=== PATIENT | male | born 1965 | race Caucasian/White ===

== ENCOUNTER 2023-02-02 08:49 | Outpatient (OUT) | payer OTHER, SELFPAY ==
--- NOTE | 2023-02-02 09:06 | XR_ITS ---
The [address] [address] Patient Name: ANUSHA SALMERON MRN: [id number] date: 1965 Sex: M Assigned Patient Location: RAD Current Patient Location: [facility] Accession/Order Number: [id number] Exam Date: 02/02/2023 09:10 Report Date: 02/02/2023 09:29 At the request of: YAMILE AMIN Procedure: XR shoulder RT min 2V EXAM: XR shoulder RT min 2V HISTORY: Fall, Right Shoulder Pain COMPARISON: None TECHNIQUE: 3 views of the right shoulder were obtained. FINDINGS: No definite acute fracture or dislocation. Glenohumeral relationship appears grossly unremarkable. Moderate degenerative changes about the acromioclavicular joint. Well-circumscribed calcification along the superior aspect of the AC joint compatible with degenerative change. Soft tissues are grossly within normal limits. XR/XR shoulder RT min 2V IMPRESSION: Right shoulder study fails to demonstrate definite acute fracture or dislocation. Degenerative changes as described. Follow-up as needed. Electronically authenticated by: EDGARDO ESTRADA Date: 02/02/2023 09:29
== END 2023-02-02 08:50 | disposition home or self-care (01) ==
LOC: RAD 08:56
PROVIDERS: Visit Provider Nurse Practitioner Family
DX: M25.511 Pain in right shoulder (principal)
CPT/HCPCS: 73030

== ENCOUNTER 2023-02-22 08:29 | Outpatient (OUT) | payer OTHER, SELFPAY ==
--- NOTE | 2023-02-22 08:34 | MR_ITS ---
[address] [address] Patient Name: ANUSHA SALMERON MRN: [id number] date: 1965 Sex: M Assigned Patient Location: MRI Current Patient Location: MRI Accession/Order Number: [id number] Exam Date: 02/22/2023 08:43 Report Date: 02/22/2023 09:43 At the request of: YAMILE AMIN Procedure: MR shoulder RT wo con EXAM: MR shoulder RT wo con REASON FOR EXAM: Right shoulder pain. TECHNIQUE: Multiplanar, multisequence imaging of the right shoulder was performed without contrast COMPARISON: Plain radiograph 02/02/2023. FINDINGS: The acromioclavicular joint is congruent with joint space narrowing, capsular hypertrophy and subchondral edema/cystic changes. Well-corticated ossific bodies are noted along the superior margin of the AC joint. Inferior marginal osteophytes mildly narrow the supraspinatus outlet. Mild broad-based thickening and partial ossification the distal coracoacromial ligament is consistent with a subacromial spur, which also mildly narrows the supraspinatus outlet. Trace amount of fluid is present in the subacromial subdeltoid bursa. Superimposed on tendinosis, there is a high-grade partial-thickness bursal sided tear of the central cuff at the greater tuberosity. Difficult to entirely exclude a full-thickness component. No significant proximal retraction. The teres minor tendon is intact. The subscapularis tendon is thickened with intermediate signal consistent with tendinosis. No tear. The extra capsular biceps tendon is within the bicipital groove. Intracapsular biceps tendon is intact. The rotator cuff musculature demonstrates symmetric bulk and signal. The humerus is centered on the glenoid. Low to intermediate grade chondrosis the glenohumeral cartilage. No detached labral tear identified. No joint effusion. The bone marrow signal is without fracture. The quadrilateral space is patent. No axillary lymphadenopathy. MR/MR shoulder RT wo con IMPRESSION: 1. Rotator cuff tendinosis with high-grade partial-thickness bursal sided tear of the central cuff at the insertion. Difficult to entirely exclude a full-thickness component. 2. Intact biceps tendon. 3. 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 4. Mild glenohumeral osteoarthritis Electronically authenticated by: SUYAPA FERRERA Date: 02/22/2023 09:43
== END 2023-02-22 08:30 | disposition home or self-care (01) ==
LOC: MRI 08:29
PROVIDERS: Visit Provider Nurse Practitioner Family
DX: S43.401A Unspecified sprain of right shoulder joint, initial encounter (principal); M75.101 Unspecified rotator cuff tear or rupture of right shoulder, not specified as traumatic
CPT/HCPCS: 73221

== ENCOUNTER 2024-07-18 17:56 | Emergency (ER) | payer BC, SELFPAY ==
--- OUTSIDE RECORDS SUMMARY | 2020-02-29 07:59 | XMS_ITS | Continuity of Care Document ---
Author Organization [facility] Address [address] [facility] [address] [place] [address] Phone Care Team Providers Care Security Business Analyst Name Role Phone Fahad Bradley Unavailable Unavailable Allergies, Adverse Reactions, Alerts Substance Reaction Status Criticality No Known Allergies Active No Inform ation Medications Medication Instructions Dosage Effective Dates (start - stop) Status Comments Ultravate 0.05 % topical cream apply by topical route 2 times every day for 2 weeks a thin layer to the affected area(s) ; do not exceed 50 grams per wk Not Available - Active Aquaphor topical ointment AAA 4 times daily PRN. - Active Procedures Procedure Date OFFICE VISIT/EST LEVEL III OFFICE VISIT/EST LEVEL III OFFICE VISIT/EST LEVEL III OFFICE VISIT/EST LEVEL III OFFICE VISIT/EST LEVEL III CBC W/DIFF. METABOLIC PANEL: CHEM 19 LIPID PANEL OFFICE VISIT/NEW LEVEL II Advance Directives Directive Yes / No Effective Date File Name No Information Encounters Encounter Description Practice Location Reason(s) For Visit Diagnoses Date Provider Providers Copied on Encounter [facility], [address], [place], [place], [id number], [place] tel:[phone] [facility] No Information 1 Jeffrey Vásquez. [address] [place], [place], [id number], [place]. tel:[phone] OFFICE VISIT/EST LEVEL III [facility], [address] [facility] [address], [place], [place], [id number], [place] tel:[phone] [facility] Rash (chief complaint)col on cancer screening (chief complaint) Contact dermatitis, unspecified contact dermatitis type, unspecified triggerColon cancer screening 6 Jeffrey V[address] [place], [place], [id number], [place]. tel:[phone] OFFICE VISIT/EST LEVEL III [facility], [address] [facility] [address], [place], [place], [id number], [place] tel:[phone] [facility] Rash (chief complaint) Contact dermatitis, unspecified contact dermatitis type, unspecified trigger 6 Jeffrey V[address]quez[address] [place], [place], [id number], [place]. tel:[phone] OFFICE VISIT/EST LEVEL III [facility], [address], [id number], [place] tel:[phone] [facility] rash (chief complaint) Contact dermatitis, unspecified contact dermatitis type, unspecified trigger 6 Judi Roberts. [address] [place], [place], [id number], [place]. tel:[phone] OFFICE VISIT/EST LEVEL III [facility], [address], [id number], [place] tel:[phone] [facility] musculoskelet al pain (chief complaint) No Information 3 No Information OFFICE VISIT/EST LEVEL III [facility], [address] [facility] [address], [place], [place], [id number], [place] tel:[phone] [facility] hypertension (follow up) (chief complaint) No Information 3 Jeffrey V[address] [place], [place], [id number], [place]. tel:[phone] OFFICE VISIT/NEW LEVEL II [facility], [address] [facility] [address], [place], [place], [id number], [place] tel:[phone] [facility] establish care (chief complaint)cou gh (chief complaint) No Information 2 Jeffrey Vásquez. [address], [place], [place], [id number], [place]. tel:[phone] Family History Family Member Type Diagnosis Age At Onset Paternal grandfather Problem (finding) Cancer, brain Mother Problem (finding) Alive and well Father Problem (finding) Alive and well Maternal grandfather Problem (finding) coronary arteri osclerosis Problem (finding) Family history of malignant neoplasm of lung Payers Payer name Insurance type Covered libertarian ID Authoriza tion(s) No Information Social History Type Description Quantity Date Captured Comments Alcohol Use Details Unknown Caffeine Use Details Unknown Tobacco Use Status No Information Smoking Status No Information Sex Male Chief Complaint And Reason For Visit No Information Reason For Referral Reason For Referral No Information Plan Of Treatment Date Type Action Status Goal Colonoscopy. Due on 026 due Goal Influenza vaccine. Due on due Goal Zoster vaccine (1st). Due on due Goal Tdap. Due on due Goal BL OCCULT,FECES-PEROX ACT-MU LT.SPEC. Due on due Goal Zoster vaccine (2nd). Due on due Goal HIV Screen. Due on due Goal HCV. Due on due Goal FIT test. Due on due Goal DNA Cologuard. Due on due Goal FIT test. Due on due Goal COLONOSCOPY/DX. Due on due Goal PSA. Due on due Goal Fluzone Quad Syringe. Due on due Goal Tdap. Due on due Goal BL OCCULT,FECES-PEROX ACT-MU LT.SPEC. Due on due Goal Tdap. Due on due Goal COLONOSCOPY/DX. Due on due Goal FIT test. Due on due Goal PSA. Due on due Goal Fluzone Quad Syringe. Due on due Goal BL OCCULT,FECES-PEROX ACT-MU LT.SPEC. Due on due Goal Fluzone Quad Syringe. Due on due Goal PSA. Due on due Goal COLONOSCOPY/DX. Due on due Goal FIT test. Due on due Goal Tdap. Due on due Goal BL OCCULT,FECES-PEROX ACT-MU LT.SPEC. Due on due Referral Referred To: Esperanza Sibley MD [address] [place] [address]
[address] [place], [phone] Ordered: Referrals: Gastroenterology. Esperanza Sibley MD. Evaluate and treat ordered History Of Present Illness Encounter Date Complaint History Of Prese nt Illness colon cancer screening Pertinent negatives include abdominal pain, constipation, diarrhea, melena and rectal bleeding. Additional information: No family history of colon cancer, No family history of Crohn's/colitis and Pt states has had colonoscopy in past years ago. Has not had colon cancer screening since turning 50. Rash The patient pres ents for Rash. Additional information: Pt here for follow up for rash on left hand. Dry cracked skin left hand palm. Was improving when away from work x 1 week. Once went back to work dry cracked skin returned. Rash The patient pres ents for Rash. This episode began 1 month ago. Affected area(s) include left hand. The patient describes the affected area(s) as itchy and scaly. The symptoms are associated with contact with chemicals. The symptoms are not associated with contact with plants, new skin soaps/lotions and recent medicines. Associated symptoms include cracking, dry skin, pruritus and scaling. Additional information: Pt here for follow up. Pt states rash improved with ultravate but ran out after 10 days. Pt states 15 grams only lasted 10 days. 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 Pt avoiding chemical contact with hands at work. rash The patient pres ents for rash. This episode began 3 months ago. The symptom(s) are described as occurs daily. Affected area(s) include left hand. The patient describes the affected area(s) as dry and itchy. Associated symptoms include pharyngitis and pruritus. Additional information: L hand palm area above the thenar eminence, He reports exposure with valves that have chemicals in them, he is using gloves but not all valves are labeled. Functional Status Date Functional Assessmen t No Information Instructions Date Instruction Additional Infor jennifer GI referral for colonoscopy. Rel ated to Colon cancer screening If no better 1 month will get derm consult. Related to Contact dermatitis, unspecified contact dermatitis type, unspecified trigger will change to betam ethasone on next refill. Related to Contact dermatitis, unspecified contact dermatitis type, unspecified trigger continue halbetasol cream BID x 2 additional weeks. Related to Contact dermatitis, unspecified contact dermatitis type, unspecified trigger F/u 1 month. Related to Conta ct dermatitis, unspecified contact dermatitis type, unspecified trigger Keep hands dry. Glov es when washing dishes or hands wet. Related to Contact dermatitis, unspecified contact dermatitis type, unspecified trigger aquaphor or neutrage na hand cream AAA 4 times daily PRN. Related to Contact dermatitis, unspecified contact dermatitis type, unspecified trigger ultravate cream AAA BID x 2 week s. Related to Contact dermatitis, unspecified contact dermatitis type, unspecified trigger f/u if BP greater than 140/90 Re lated to Hypertension, Unspecified HTN resolved. Pt adv ised to monitor at home 1-2 times per month. Related to Hypertension, Unspecified Z-christo. Related to Bronc hitis Increase fluids, rest, good food . Related to Bronchitis Mucinex OTC BID PRN. Related to Bronchitis nurse visit to check fasting labs then f/u appt 1 month to recheck BP. Related to HTN (hypertension) Pt to check BP 1-2 t imes per week at home and record. Related to HTN (hypertension) Assessments Type Assessment Date No Information Patient Care Teams Name Effective Dates (start - stop) Status Members No Information
[2024-07-18] VITALS (23 sets, daily range): BP systolic 106–143; BP diastolic 67–97; PULSE 62–79; TEMP 37.1; O2SAT 93–98; BMI 29.5
--- OUTSIDE RECORDS SUMMARY | 2024-07-18 18:05 | XMS_ITS | Clinical Summary ---
Author Organization [facility]in [facility] Address [address] [place] [address] Care Team Providers Care President Ergonomic Consulting Name Role Phone Bruno Lyn MD Primary Care Provider [phone] Allergies No known active allergies Medications meloxicam (MOBIC) 15 MG tablet 15 mg 1 Active metFORMIN (GLUCOPHAGE) 500 MG tablet 500 mg 1 Active atorvastatin (LIPITOR) 20 MG tablet 20 mg 1 Active lisinopril (PRINIVIL;ZESTR IL) 5 MG tablet 5 mg 1 Active diclofenac sodium (VOLTAREN) 1 % GELIndications: Right thigh pain,Right hamstring injury, initial encounter Apply 4 g topically 4 times daily 350 g 1 1 Active terbinafine (LAMISIL) 250 MG tabletIndicatio ns:Onychomycosi s TAKE 1 TABLET BY MOUTH EVERY DAY 84 tablet 1 Active Active Problems Problem Noted Date Diagnosed Date Mass of left side of neck 12/13/2020 Type 2 diabetes mellitus wit hout complication, without long-term current use of insulin 12/13/2020 Right thigh pain 12/13/2020 Onychomycosis 12/13/2020 Right hamstring injury 12/13/2020 Mixed hyperlipidemia 10/03/2020 Corrosion of first degree of back of left hand 0 2016 Family History Medical History Relation Name Comments Cancer Maternal Uncle lung Cancer Paternal Grandfather brain Cancer Paternal Grandmother brain Relation Name Status Comments Father Alive Maternal Uncle Mother Alive Paternal Grandfather Paternal Grandmother Social History Tobacco Use Types Packs/Day Years Used Date Smoking Tobacco: Former Cigarettes 2 22 Smokeless Tobacco: Former Quit: 09/12/2006 Tobacco Cessation:Counseling Given: Yes Comments:Quit 2005 Alcohol Use Standard Drinks/Week Comments No 0 (1 standard drink = 0.6 oz pur e alcohol) Overall Financial Resource Strain (CARDIA) Answe r Date Recorded How hard is it for you to pa y for the very basics like food, housing, medical care, and heating? Not hard at all 12/13/2020 PHQ-2 Answer Date Recorded PHQ-9 Total Score 0 12/13/2020 Hunger Vital Sign Answer Date Recorded Within the past 12 months, y ou worried that your food would run out before you got the money to buy more. Never true 12/14/19 21 Within the past 12 months, t he food you bought just didn't last and you didn't have money to get more. Never true 12/13/2020 PRAPARE - Transportation Answer Date Re corded In the past 12 months, has l ack of transportation kept you from medical appointments or from getting medications? No 11/16 In the past 12 months, has l ack of transportation kept you from meetings, work, or from getting things needed for daily living? No 12/13/2020 Sex and Gender Information Value Date Recorded Sex Assigned at Not on file Legal Sex Male 7:18 PM EST Gender Identity Not on file Sexual Orientation Not on file Last Filed Vital Signs Vital Sign Reading Time Taken Comments Blood Pressure 117/76 12/13/2020 8:49 AM EDT Pulse 71 12/13/2020 8:49 AM EDT Temperature 37 C (98.6 F) 10/11/2015 10:35 AM EDT Respiratory Rate 16 2016 2:08 PM EST Oxygen Saturation 93% 10/11/2015 11:05 AM EDT Inhaled Oxygen Concentration - - Weight 86.6 kg (191 lb) 12/13/2020 8:49 AM EDT Height 172.7 cm (5' 8 ) 12/13/2020 8:49 AM EDT Body Mass Index 29.04 12/13/2020 8:49 AM EDT Plan of Treatment Not on file Care Teams President Ergonomic Consulting Relationship Specialty Start Date End Date Bruno Lyn MD [address] [place] [address] PCP - General Family Medicine 01/30/21
--- OUTSIDE RECORDS SUMMARY | 2024-07-18 18:05 | XMS_ITS | Encounter Summary ---
Author Organization [facility] Address [id number] [address] [place] [address] Care Team Providers Care Glass Installer Technician Name Role Phone Horacio Moore DO Primary Care Provider [phone] Encounter Details Date Type Department Care Team (Late st Contact Info) Description 12/01/2023 Telephone [facility] - Family Medicine [address] [place] [id number] Mk Packer CMA Social History Tobacco Use Types Packs/Day Years Used Date Smoking Tobacco: Former Cigarettes 2 30.6 0 1981 - 11/25/2011 Smokeless Tobacco: Never Alcohol Use Standard Drinks/Week Comments Yes 0 (1 standard drink = 0.6 oz pur e alcohol) SOCIAL C Utilities Answer Date Recorded In the past 12 months has [employer] electric, gas, oil, or water company threatened to shut off services in your home? No 11/25/2023 Social Connection and Isolation Panel [NHANES] A nswer Date Recorded In a typical week, how many times do you talk on the phone with family, friends, or neighbors? Once a week 11/25/19 How often do you get togethe r with friends or relatives? Once a week 11/25/2023 How often do you attend chur ch or temple services? Never 11/25/2023 Do you belong to any clubs o r organizations such as jew groups, unions, fraternal or athletic groups, or school groups? No 11/25/2023 How often do you attend meet ings of the clubs or organizations you belong to? Never 11/25/2023 Are you , , di vorced, , never , or living with a partner? Living with partner 11/25/2023 AUDIT-C Answer Date Recorded Q1: How often do you have a drink containing alc ohol? 2-4 times a month 11/25/2023 Q2: How many drinks containi ng alcohol do you have on a typical day when you are drinking? 1 or 2 11/25/2023 Q3: How often do you have si x or more drinks on one occasion? Never 11/25/2023 PHQ-2 Answer Date Recorded Total Score 0 03/26/2023 [facility] - Occupational Stress Questionnaire Answer Date Recorded Do you feel stress - tense, restless, nervous, or anxious, or unable to sleep at night because your mind is troubled all the time - these days? Only a little 11/25/2023 Exercise Vital Sign Answer Date Recorde d On average, how many days pe r week do you engage in moderate to strenuous exercise (like a brisk walk)? 2 days 11/25/2023 On average, how many minutes do you engage in exercise at this level? 30 min 11/25/2023 PRAPARE - Transportation Answer Date Re corded In the past 12 months, has l ack of transportation kept you from medical appointments or from getting medications? No 11/15 In the past 12 months, has l ack of transportation kept you from meetings, work, or from getting things needed for daily living? No 11/25/2023 Housing Instability Answer Date Recorde d Are you worried or concerned that in the next two months you may not have stable housing that you own, rent or stay in as a part of a household? No 11/25/2023 Childcare Answer Date Recorded Do problems getting child ca re make it difficult for you to work or study? No 11/25/2023 Employment Answer Date Recorded Do you need help finding a [facility] and/or a training program? No 11/25/2023 Hunger Screening Answer Date Recorded Within the past 12 months we worried whether our food would run out before we got money to buy more. Never True 03/26/2023 Within the past 12 months th e food we bought just didn't last and we didn't have money to get more. Never True 03/26/2023 Purpose - Life Answer Date Recorded I have a purpose and direction in my life. Stron gly Agree 11/25/2023 Sex and Gender Information Value Date Recorded Sex Assigned at Not on file Legal Sex Male 12:55 PM EST Gender Identity Not on file Sexual Orientation Not on file documented as of this encounter Miscellaneous Notes * Telephone Encounter - Mk Packer CMA - 12/01/2023 2:32 PM EDT ----- Message from Dr. Horacio Moore DO sent at 12/01/2023 11:12 AM EDT ----- Looks like he might have a 5 mm nodule in his right lung but has benign appearance. They recommend rechecking a CT scan in 1 year * Telephone Encounter - Chichi Mar CMA - 12/01/2023 2:32 PM EDT Pt called back read note stated he understood documented in this encounter Plan of Treatment Not on file documented as of this encounter Visit Diagnoses Not on filedocumented in this encounter Additional Health Concerns Assessment Noted Time PHQ-9 Depression Total Score: 0 03/26/19 10:09 AM EST documented as of this encounter Care Teams Glass Installer Technician Relationship Specialty Start Date End Date Horacio Moore DO [address] [facility] [place] [address] PCP - General Family Medicine 08/30/23 documented as of this encounter
--- NOTE | 2024-07-18 18:16 | XR_ITS ---
The [place] [id number] Patient Name: ANUSHA SALMERON MRN: [id number] date: 1965 Sex: M Assigned Patient Location: ER Current Patient Location: ER Accession/Order Number: [id number] Exam Date: 07/18/2024 18:34 Report Date: 07/18/2024 18:34 At the request of: ADDI MCCLELLAN Procedure: XR chest 1V Plain film chest Single view HISTORY: Chest pain COMPARISON: None FINDINGS: SUPPORT DEVICES: None POSTSURGICAL CHANGES: None HEART: Within normal limits PULMONARY REENA: Within normal limits MEDIASTINUM: Unremarkable LUNGS AND PLEURA: No acute lung process, pleural effusion or pneumothorax identified. BONY STRUCTURES: Intact ADDITIONAL FINDINGS None XR/XR chest 1V IMPRESSION: No acute process. Impression dictated by: Tavon Rodarte M.D. 07/18/2024 6:34 PM Dictation Location: [place] [address] Electronically authenticated by: [id number] Y Date: 07/18/2024 18:34
--- NOTE | 2024-07-18 18:16 | ECG_ITS ---
The [facility] Test Date: 2024-07-18 Pat Name: ANUSHA SALMERON Department: Room: - Gender: Male Senior Visual Designer: : 1965 Requested By: [id number] Order Number: [id number] Reading MD: AMADOR CORRAL M.D. Measurements Intervals [place] Rate: 62 P: 12 MO: 154 QRS: 76 QRSD: 96 T: 31 QT: 386 QTc: 391 Interpretive Statements [address] abnormality Abnormal ECG No previous ECG available for comparison Electronically Signed On 07-19-2024 19:09:12 EDT by AMADOR CORRAL M.D.
--- NOTE | 2024-07-18 18:16 | ED.CHESTPAI1 ---
HPI - Chest Pain General Chief Complaint: Chest Pain Stated Complaint: chest pain Time Seen by Provider: 07/18/24 18:05 Source: patient Mode of arrival: walk-in History of Present Illness HPI narrative: 59 year old male presents to the ED for discomfort to his left chest and left arm. Onset was earlier today at work while climbing a ladder. States he was reaching up with his left arm when the arm pain started. It then radiated to his left chest. Reports tenderness to the chest area with palpation. States he became diaphoretic and his face was red. Reports having a stressful day at work today. The pain lasted a few minutes. Denies pain now. Denies fever, chills, dizziness, SOB. Reports his vision was going in and out for about 30 minutes. Related Data Home Medications ?Medication ?Instructions ?Recorded ?Confirmed atorvastatin 20 mg tablet mg PO DAILY 07/18/24 lisinopril 5 mg tablet mg 07/18/24 meloxicam 15 mg tablet mg 07/18/24 Allergies Allergy/AdvReac Type Severity Reaction Status Date / Time No Known Drug Allergies Allergy Verified 07/18/24 18:04 Review of Systems ROS Constitutional Denies: fever or chills Ears, nose, mouth, and throat Denies: throat pain Cardiovascular Reports: chest pain; Denies: palpitations or edema Respiratory Denies: shortness of breath or cough Gastrointestinal Denies: abdominal pain, nausea or vomiting Musculoskeletal Denies: back pain or neck pain Integumentary/Breast Denies: rash Neurological Denies: headache, numbness in extremities, weakness in extremities, lack of coordination or dizziness Psychiatric Reports: anxiety PFSH PFSH Social History Little interest or pleasure in doing things: not at all Feeling down, depressed, or hopeless: not at all Exam Constitutional Vital Signs, click to edit/add: Last Vital Signs Temp 98.7 F 07/18/24 18:04 Pulse 79 07/18/24 20:30 Resp 18 07/18/24 20:30 BP 143/88 H 07/18/24 20:30 Pulse Ox 94 L 07/18/24 20:30 O2 Del Method Room Air 07/18/24 18:04 Common normals: no apparent distress and oriented x3 General appearance: cooperative HENMT Common normals: moist oral mucous membranes Eye Common normals: conjunctivae normal and no scleral icterus Neck & C-Spine Common normals: supple Chest Chest: symmetrical chest wall rise and tenderness (Left lower anterior at site of patient's discomfort) Neuro Common normals: oriented x3, CN's II-XII intact bilaterally and moves all extremities Sensorium/orientation: awake and alert Speech: speech normal Course Vital Signs Vital signs: Vital Signs Temperature 98.7 F 07/18/24 18:04 Pulse Rate 74 07/18/24 18:04 Respiratory Rate 16 07/18/24 18:04 Blood Pressure 137/85 07/18/24 18:04 Pulse Oximetry 96 07/18/24 18:04 Oxygen Delivery Method Room Air 07/18/24 18:04 Temperature 98.7 F 07/18/24 18:04 Pulse Rate 79 07/18/24 20:30 Respiratory Rate 18 07/18/24 20:30 Blood Pressure 143/88 H 07/18/24 20:30 Pulse Oximetry 94 L 07/18/24 20:30 Oxygen Delivery Method Room Air 07/18/24 18:04 MDM - Chest Pain MDM Narrative Medical decision making narrative: Chest x-ray was negative for acute findings. EKG was unremarkable. Laboratory studies were unremarkable, including two negative troponin levels. Findings were discussed with the patient. He was not having symptoms here in the ED. Outpatient stress testing was discussed. Return precautions were discussed. Follow up with pcp for a recheck, further evaluation and treatment. Differential Diagnosis Differential diagnosis: Likely stable angina, unstable angina pectoris, atypical chest pain, st elevation myocardial infarction, costochondritis and chest pain Medical Records Data Attestation: I reviewed the patient's medical records. Lab Data Attestation: I reviewed the patient's lab results. Labs: Lab Results 07/18/24 07/18/24 Range/Units 18:20 20:00 WBC 7.5 (4.0-11.0) 10^3/uL RBC 4.74 (4.70-6.10) 10^6/uL Hgb 14.6 (14.0-18.0) g/dL Hct 41.3 L (42.0-54.0) % MCV 87.1 (80.0-94.0) fL MCH 30.8 (25.9-34.0) pg MCHC 35.4 H (29.9-35.2) g/dL RDW 12.1 (11.0-15.0) % Plt Count 242 (150-450) 10^3/uL MPV 10.0 (9.5-13.5) fL Neut % (Auto) 65.1 (43.0-75.0) % Lymph % (Auto) 23.7 (20.5-60.0) % [place] % (Auto) 8.2 (1.7-12.0) % Eos % (Auto) 1.9 (0.9-7.0) % Baso % (Auto) 0.8 (0.2-2.0) % Neut # (Auto) 4.9 (1.4-6.5) 10^3/uL Lymph # (Auto) 1.8 (1.2-3.8) 10^3/uL [place] # (Auto) 0.6 (0.3-0.8) 10^3/uL Eos # (Auto) 0.1 (0.0-0.7) 10^3/uL Baso # (Auto) 0.1 (0.0-0.1) 10^3/uL Abs Immat Gran (auto) 0.02 (0.00-0.03) 10^3/uL Imm/Tot Granulo (auto) 0.3 (0.0-0.5) % Sodium 142 (136-145) mmol/L Potassium 3.5 (3.5-5.1) mmol/L Chloride 104 (98-107) mmol/L Carbon Dioxide 24.5 (21.0-32.0) mmol/L Anion Gap 17.0 BUN 12.0 (7.0-18.0) mg/dL Creatinine 1.11 (0.70-1.30) mg/dL Est GFR ( Amer) >60 (>=60 mL/min/1.73m^2) Est GFR (Non-Af Amer) >60 (>=60 mL/min/1.73m^2) BUN/Creatinine Ratio 10.8 Glucose 122 H (74-106) mg/dL Calcium 9.0 (8.5-10.1) mg/dL Total Bilirubin 0.9 (0.2-1.0) mg/dL AST 22 (15-37) U/L ALT 30 (16-63) U/L Alkaline Phosphatase 96 (46-116) U/L Troponin I High Sens 7.2 5.4 (4.0-76.1) pg/mL Total Protein 7.5 (6.4-8.2) g/dL Albumin 4.2 (3.4-5.0) g/dL Globulin 3.3 g/dL Albumin/Globulin Ratio 1.3 Imaging Data Chest x-ray: Attestation: I have reviewed the pertinent imaging results. Radiologist's impression: ITS Impressions Chest X-Ray 07/18/24 18:16 IMPRESSION: No acute process. Impression dictated by: Tavon Rodarte M.D. 07/18/2024 6:34 PM Dictation Location: [facility]Mixamo Electronically authenticated by: [id number] Y Date: 07/18/2024 18:34 ECG Data Attestation: ?I have reviewed the pertinent ECG results. (EKG was reviewed by the attending physician. It showed sinus rhythm at a rate of 62. No STEMI. ) Interpretation: Measurements Intervals D Lo Rate: 62 P: 12 MT: 154 QRS: 76 QRSD: 96 T: 31 QT: 386 QTc: 391 Interpretive Statements 1100 Sinus rhythm 9110 normal ECG No previous ECG available for comparison Heart Score History: Slightly/Non-Suspicious ECG: Normal Age: >45-<65 years Risk Factors: 1 or 2 Risk Factors Troponin: <Normal Limit Total Heart Score Recommendations & Risks:: 2 Discharge Plan Discharge Chief Complaint: Chest Pain Clinical Impression: Atypical chest pain Patient Disposition: Home, Self-Care Time of Disposition Decision: 20:34 Condition: Good Mode of Transportation: Private Vehicle Prescriptions / Home Meds: No Action atorvastatin 20 mg tablet PO DAILY meloxicam 15 mg tablet lisinopril 5 mg tablet Print Language: Bel[place]ian Instructions: Chest Pain (ED), Chest Wall Pain (ED) Additional Instructions: Return to the ER for worsening symptoms. Follow up with your primary care provider for a recheck, further evaluation and treatment. Consider an outpatient cardiac stress test. Referrals: Physician,Non-Staff, MD [Primary Care Provider] - 1 week
[2024-07-18 18:30] LABS: Basophils Absolute Auto 0.1 10^3/uL (0.0-0.1); Basophils Percent Auto 0.8 % (0.2-2.0); Eosinophils Absolute Auto 0.1 10^3/uL (0.0-0.7); Eosinophils Percent Auto 1.9 % (0.9-7.0); Hematocrit 41.3 % (42.0-54.0); Hemoglobin 14.6 g/dL (14.0-18.0); Immature Granulocytes Abs Auto 0.02 10^3/uL (0.00-0.03); Immature Granulocytes Pct Auto 0.3 % (0.0-0.5); Lymphocytes Absolute Auto 1.8 10^3/uL (1.2-3.8); Lymphocytes Percent Auto 23.7 % (20.5-60.0); Mean Corpuscular HGB Conc 35.4 g/dL (29.9-35.2); Mean Corpuscular Hemoglobin 30.8 pg (25.9-34.0); Mean Corpuscular Volume 87.1 fL (80.0-94.0); Monocytes Absolute Auto 0.6 10^3/uL (0.3-0.8); Monocytes Percent Auto 8.2 % (1.7-12.0); Neutrophils Absolute Auto 4.9 10^3/uL (1.4-6.5); Neutrophils Percent Auto 65.1 % (43.0-75.0); Platelet Count 242 10^3/uL (150-450); Red Blood Count 4.74 10^6/uL (4.70-6.10); Red Cell Distribution Width 12.1 % (11.0-15.0); White Blood Count 7.5 10^3/uL (4.0-11.0)
[2024-07-18] MEDS: ASPIRIN 81 MG TAB.CHEW 324 MG PO (18:36)
[2024-07-18 18:46] LABS: Alanine Aminotransferase 30 U/L (16-63); Albumin Globulin Ratio 1.3; Albumin Level 4.2 g/dL (3.4-5.0); Alkaline Phosphatase 96 U/L (46-116); Aspartate Amino Transferase 22 U/L (15-37); BUN Creatinine Ratio 10.8; Bilirubin Total 0.9 mg/dL (0.2-1.0); Carbon Dioxide 24.5 mmol/L (21.0-32.0); Chloride 104 mmol/L (98-107); Estimated GFR (African America >60 (>=60 mL/min/1.73m^2); Estimated GFR (Non-African Ame >60 (>=60 mL/min/1.73m^2); Globulin 3.3 g/dL; Glucose 122 mg/dL (74-106); Potassium 3.5 mmol/L (3.5-5.1); Sodium 142 mmol/L (136-145); Total Protein 7.5 g/dL (6.4-8.2); Troponin I High Sensitivity 7.2 pg/mL (4.0-76.1)
[2024-07-18 20:27] LABS: Troponin I High Sensitivity 5.4 pg/mL (4.0-76.1)
== END 2024-07-18 20:43 | disposition home or self-care (01) ==
PROVIDERS: Nurse Practitioner Family; Emergency Provider Emergency Medicine
DX: R07.89 Other chest pain (principal)
CPT/HCPCS: 36415; 71045; 80053; 84484; 85025; 93005; 99285